=== PATIENT | female | born 1950 | race Caucasian/White ===

== ENCOUNTER 2019-10-02 09:36 | Day surgery (SDC) | payer MEDICARE, BC ==
[2019-10-01 10:03] VITALS: BMI 28.3
[2019-10-02] MEDS ORDERED: Lidocaine 1% w/Epinephrine 1:100K 20 ML VIAL ONE (10:39)
[2019-10-02 10:43] LABS: Hemoglobin 14.9 g/dL (12.0-16.0)
[2019-10-02] MEDS ORDERED: Midazolam HCl 2 mg/2 ml Vial ONE (10:43)
[2019-10-02] MEDS ORDERED: Fentanyl 100 MCG/2 ML VIAL ONE ×3 (10:43→13:19)
[2019-10-02 10:58] LABS: Anion Gap 13 mmol/L (10-20); BUN (Urea Nitrogen) 10 mg/dL (9.8-20.1); Calc. Creatinine Clearance 68 mL/min (70-130); Calcium 9.6 mg/dL (7.8-10.44); Carbon Dioxide 27 mmol/L (23-31); Chloride 104 mmol/L (98-107); Estimated GFR-MDRD 64; Glucose 95 mg/dL (83-110); Potassium 3.8 mmol/L (3.5-5.1); Sodium 140 mmol/L (136-145)
[2019-10-02] MEDS ORDERED: Levofloxacin 500 mg/D5W 100 ml Premix Bag ONE (11:32)
[2019-10-02] MEDS ORDERED: Labetalol HCl 100 MG/20 ML VIAL ONE (11:54)
[2019-10-02] MEDS ORDERED: Dexamethasone 20 MG/5 ML VIAL ONE (11:54)
[2019-10-02] MEDS ORDERED: PROPOFOL 200 MG/20 ML VIAL ONE (11:54)
[2019-10-02] MEDS ORDERED: Glycopyrrolate 0.2 MG/ML 5 ML SYRINGE ONE (11:54)
[2019-10-02] MEDS ORDERED: Ondansetron PF 4 MG/2 ML Vial ONE ×2 (11:54→13:46)
[2019-10-02] MEDS ORDERED: Lidocaine 1% PF 5 ML VIAL ONE (11:54)
[2019-10-02] MEDS ORDERED: Rocuronium Bromide 10 MG/ML (10ML VIAL) ONE (11:54)
[2019-10-02] MEDS ORDERED: Promethazine HCl 25 MG/ML VIAL ONE (14:59)
[2019-10-02] MEDS ORDERED: HYDROcodone/Acetaminophen 5/325 mg Tablet ONE (16:50)
--- NOTE | 2019-10-03 09:15 | OP ---
DATE OF PROCEDURE: 10/02/2019 PREOPERATIVE DIAGNOSIS: Left submandibular gland sialadenitis. POSTOPERATIVE DIAGNOSIS: Left submandibular gland sialadenitis. PROCEDURE PERFORMED: Excision of left submandibular gland. ESTIMATED BLOOD LOSS: 10 mL. COMPLICATIONS: None. ANESTHESIA: GETA. DESCRIPTION OF PROCEDURE: The patient was taken to the operating room and placed supine on the table. General endotracheal anesthesia was obtained by the Anesthesia Staff. The tube was secured to the right lower lip and a shoulder roll was placed, placing the patient's head in gentle extension, exposing the left neck. Following this, the patient was prepped and draped in standard surgical fashion. 8 mL of 1% lidocaine with 1:100,000 epinephrine was injected into the overlying area of the anticipated skin incision. An incision was made approximately 2 cm below the angle of the mandible in a horizontal neck skin crease with a 15 blade through skin and subcutaneous tissue and the platysmal layer. Subplatysmal flaps were elevated superiorly and inferiorly, allowing exposure of the submandibular gland. The gland was immediately identified and was noted to be rock-hard and inflamed. The facial artery and vein were suture ligated just below the mandible. The fascia overlying the facial artery and vein, which contained the marginal mandibular nerve was elevated and retracted superiorly. Following this, the gland was freed from its inferior attachments and was displaced inferiorly with an Allis clamp. The lingual nerve was identified and its postganglionic fibers were suture ligated immediately adjacent to the submandibular gland. Following this, the gland was then further displaced inferiorly and the mylohyoid muscle was retracted anteriorly. Keeping the hypoglossal nerve in direct visualization along with the lingual nerve, a curved hemostat was used to clamp the submandibular duct and suture ligate this duct medially adjacent to the floor of mouth. was then removed. The wound was irrigated. A small drain was placed and the platysmal layer was then closed using 3-0 Monocryl and subcuticular layer was then closed using 4-0 Monocryl. The skin was closed using Dermabond. The patient tolerated the procedure well. Job ID: [id number]
--- NOTE | 2019-10-03 15:57 | EKG ---
Test Reason : PREOP Blood Pressure : / mmHG Vent. Rate : 056 BPM Atrial Rate : 056 BPM P-R Int : 140 ms QRS Dur : 076 ms QT Int : 434 ms P-R-T Axes : -19 -28 000 degrees QTc Int : 418 ms Sinus bradycardia Voltage criteria for left ventricular hypertrophy Abnormal ECG Confirmed by CARLY COLLINS ([id number]) on 10/03/2019 3:57:22 PM Referred By: Yeni BOYD Confirmed By:CARLY COLLINS
== END 2019-10-02 17:00 | disposition home or self-care (01) ==
LOC: SDC 09:36
PROVIDERS: ATTEND Otolaryngology Plastic Surgery within the Head & Neck
PROC: 0CTH0ZZ Resection of Left Submaxillary Gland, Open Approach (ICD-10-PCS; principal; 2019-10-02)
DX: K11.5 Sialolithiasis (principal); K11.21 Acute sialoadenitis; K11.23 Chronic sialoadenitis; I10 Essential (primary) hypertension; Z85.72 Personal history of non-Hodgkin lymphomas; Z79.899 Other long term (current) drug therapy; Z88.0 Allergy status to penicillin; Z88.1 Allergy status to other antibiotic agents; Z88.2 Allergy status to sulfonamides; Z98.1 Arthrodesis status; Z98.84 Bariatric surgery status
CPT/HCPCS: 80048; 85014; 85018; 88307; 93005; 93010; J1100; J1956; J2001; J2250; J2405; J2550; J2704; J3010